=== PATIENT | female | born 1995 | race African-American/Black ===

== ENCOUNTER 2018-05-29 16:54 | Inpatient (IN) ==
[2018-05-29] MEDS ORDERED: BUTORPHANOL 1 MG/ML VIAL IV PRN (17:10)
[2018-05-29] MEDS ORDERED: MEPERIDINE 50 MG/1 ML VIAL IV PRN (17:10)
[2018-05-29] MEDS ORDERED: BUTORPHANOL 2 MG/ML VIAL IV PRN (17:10)
[2018-05-29] MEDS ORDERED: ONDANSETRON 4 MG/2 ML VIAL IV PRN (17:10)
[2018-05-29] MEDS ORDERED: AMPICILLIN INJ 2,000 MG in SODIUM CHLORIDE 0.9% 100 ML IV ONE (17:14)
[2018-05-29] MEDS: LACTATED RINGERS 1,000 ML IV SCH ×2 (17:40→20:38)
[2018-05-29 18:51] LABS: Albumin 2.4 G/DL (3.4-5.0); Bilirubin,Total 0.4 MG/DL (0.2-1.0); Calcium 8.5 MG/DL (8.5-10.1); Osmolality,Calculated 269.7 MOS/KG (273-304); Potassium 3.6 MMOL/L (3.5-5.1)
[2018-05-29 19:06] LABS: Basophils % 0.2 % (0.0-0.8); Eosinophils # 0.1 10*3/uL (0.0-0.87); Eosinophils % 0.5 % (0.00-10.9); Hematocrit 31.1 VOL% (35.7-47.0); Hemoglobin 8.9 GM/DL (12.0-16.0); Immature Granulocytes % 0.7 %; Immature Granulocytes Absolute 0.09 #; Lymphocytes # 2.2 10*3/uL (1.4-4.0); Lymphocytes % 17.9 % (21.3-54.2); Mean Corpuscular HGB Conc 28.6 GM/DL (32-36); Mean Corpuscular Hemoglobin 21 PG (27-34); Mean Corpuscular Volume 72.3 FL (87-102); Mean Platelet Volume 11.1 FL (9.6-12.0); Monocytes # 0.9 10*3/uL (0.11-0.8); Monocytes % 6.9 % (1.7-12.7); Neutrophils # 9.1 10*3/uL (1.4-7.4); Neutrophils % 73.8 % (38.7-73.9); Platelet Count 273 T/CUMM (130-400); Red Cell Distribution Width 17.8 % (9.3-17.3); White Blood Count 12.3 T/CUMM (4-12)
[2018-05-29] MEDS ORDERED: FAMOTIDINE 20 MG/2 ML VIAL IV ONE (19:49)
[2018-05-29] MEDS ORDERED: CITRIC ACID/SODIUM CITRATE 30 ML UDCUP PO ONE (19:49)
[2018-05-29] MEDS ORDERED: fentaNYL 2 MCG/ROPIV 0.2% EPID 100 ML EPIDURAL SCH (20:00)
[2018-05-29] MEDS ORDERED: LIDOCAINE 1% 50 ML VIAL ONE (20:31)
[2018-05-29] MEDS ORDERED: miSOPROStol 200 MCG TABLET ONE (20:31)
[2018-05-29] MEDS ORDERED: ePHEDrine 50 MG/ML AMP ONE (20:32)
[2018-05-29] MEDS: AMPICILLIN INJ 1,000 MG in SODIUM CHLORIDE 0.9% 100 ML IV SCH (21:44)
[2018-05-29 23:04] LABS: Apearance,Urine CLEAR (Clear); Bilirubin,Urine Negative (Negative); Blood, Urine Negative (Negative); Glucose,Urine (UA) Negative (Negative); Ketones,Urine 80 mg/dL (Negative); Mucus,Urine Occasional /LPF (Occasional); Nitrite,Urine Negative (Negative); Protein,Urine Negative; RBC,Urine 1 /HPF (0-4); Renal Epithelial Cells,Urine Occasional /HPF (<1); Squamous Epithelial Cell,Urine Occasional /HPF (0-10); Urine Color Yellow (Yellow); Urine Specific Gravity 1.013 (1.001-1.035); WBC,Urine 1 /HPF (0-6)
[2018-05-30 00:57] LABS: Apearance,Urine CLEAR (Clear); Bilirubin,Urine Negative (Negative); Blood, Urine Negative (Negative); Glucose,Urine (UA) Negative (Negative); Ketones,Urine 80 mg/dL (Negative); Mucus,Urine Occasional /LPF (Occasional); Nitrite,Urine Negative (Negative); Protein,Urine Negative; Squamous Epithelial Cell,Urine Occasional /HPF (0-10); Urine Color Yellow (Yellow); Urine Specific Gravity 1.015 (1.001-1.035); Urine Urobilinogen < 2.0 EU/DL (0.2-1.0); WBC,Urine <1 /HPF (0-6)
[2018-05-30] MEDS: AMPICILLIN INJ 1,000 MG in SODIUM CHLORIDE 0.9% 100 ML IV SCH ×2 (01:29→05:34)
[2018-05-30] MEDS: LACTATED RINGERS 1,000 ML IV SCH (02:45)
[2018-05-30] MEDS ORDERED: METHYLERGONOVINE 0.2 MG/1 ML AMP ONE (05:37)
[2018-05-30] MEDS: OXYTOCIN/LR 20 UNIT/1,000 ML BAG IV SCH ×2 (06:10→08:49)
[2018-05-30 06:35] LABS: Cord Venous Blood HCO3 22.6 MMOL/L; Cord Venous Blood PCO2 34.4 MMHG; Cord Venous Blood PO2 35.4
[2018-05-30] MEDS ORDERED: IBUPROFEN 800 MG TABLET PO ONE (07:22)
[2018-05-30] MEDS ORDERED: BENZOCAINE 20%/MENTHOL 0.5% SPRAY 56 GM CAN TOP PRN (09:32)
[2018-05-30] MEDS ORDERED: ACETAMINOPHEN 325 MG TABLET PO PRN (09:32)
[2018-05-30] MEDS ORDERED: RHO(D) IMMUNE GLOBULIN 300 MCG SYRINGE IM ONE (09:32)
[2018-05-30] MEDS ORDERED: oxyCODONE/ACETAMINOPHEN 5-325 MG TABLET PO PRN (09:32)
[2018-05-30] MEDS ORDERED: WITCH HAZEL PADS 100/JAR TOP PRN (09:32)
[2018-05-30] MEDS ORDERED: MEASLES/MUMPS/RUBELLA VACCINE 0.5 ML VIAL SUBCUT ONE (09:32)
[2018-05-30] MEDS ORDERED: LANOLIN 50% CREAM 0.3 OZ TUBE TOP PRN (09:32)
[2018-05-30] MEDS ORDERED: ACETAMINOPHEN/CODEINE 300-30 MG TABLET PO PRN (09:32)
[2018-05-30] MEDS ORDERED: HYDROCORTISONE 2.5% RECTAL CREAM 30 GM TUBE TOP PRN (09:32)
[2018-05-30] MEDS ORDERED: DIPH/TET/ACEL PERT BOOSTER VACCINE 0.5 ML VIAL IM ONE (09:32)
[2018-05-30] MEDS ORDERED: BISACODYL 10 MG SUPP RECTAL PRN (09:32)
[2018-05-30] MEDS ORDERED: ONDANSETRON 4 MG TABLET PO PRN (14:08)
[2018-05-30] MEDS: IBUPROFEN 800 MG TABLET PO PRN (17:29)
[2018-05-30] MEDS: DOCUSATE SODIUM 100 MG CAPSULE PO SCH (21:07)
[2018-05-31] MEDS: IBUPROFEN 800 MG TABLET PO PRN ×3 (00:06→17:02)
[2018-05-31] MEDS: oxyCODONE/ACETAMINOPHEN 5-325 MG TABLET PO PRN ×3 (00:06→16:59)
[2018-05-31 05:28] LABS: Basophils % 0.2 % (0.0-0.8); Eosinophils # 0.3 10*3/uL (0.0-0.87); Hematocrit 23.3 VOL% (35.7-47.0); Hemoglobin 6.5 GM/DL (12.0-16.0); Immature Granulocytes % 0.5 %; Immature Granulocytes Absolute 0.07 #; Lymphocytes # 4.2 10*3/uL (1.4-4.0); Lymphocytes % 30.7 % (21.3-54.2); Mean Corpuscular HGB Conc 27.9 GM/DL (32-36); Mean Corpuscular Hemoglobin 20 PG (27-34); Mean Platelet Volume 10.5 FL (9.6-12.0); Monocytes # 0.8 10*3/uL (0.11-0.8); Monocytes % 5.6 % (1.7-12.7); Neutrophils # 8.4 10*3/uL (1.4-7.4); Platelet Count 221 T/CUMM (130-400); Red Blood Count 3.19 MC/CUMM (3.8-5.5); Red Cell Distribution Width 17.7 % (9.3-17.3); White Blood Count 13.8 T/CUMM (4-12)
[2018-05-31 05:56] LABS: Hypochromasia 1+; Microcytosis Slight; Platelet Estimate Adequate
[2018-05-31 05:57] LABS: Ovalocytes Slight
[2018-05-31] MEDS: DOCUSATE SODIUM 100 MG CAPSULE PO SCH ×3 (07:14→22:24)
[2018-05-31] MEDS ORDERED: SODIUM CHLORIDE 0.9% 1,000 ML IV PRN (07:42)
[2018-05-31] MEDS ORDERED: INFLUENZA VIRUS VACCINE 0.5 ML SYRINGE IM ONE (08:00)
[2018-05-31] MEDS: FERROUS SULFATE 325 MG TABLET PO SCH ×3 (08:07→22:23)
[2018-05-31 17:44] LABS: Hematocrit 32.3 VOL% (35.7-47.0)
[2018-05-31 17:45] LABS: Hemoglobin 9.7 GM/DL (12.0-16.0)
[2018-06-01] MEDS: oxyCODONE/ACETAMINOPHEN 5-325 MG TABLET PO PRN ×2 (00:25→08:40)
[2018-06-01] MEDS: IBUPROFEN 800 MG TABLET PO PRN ×2 (00:26→08:40)
[2018-06-01] MEDS: DOCUSATE SODIUM 100 MG CAPSULE PO SCH (08:43)
[2018-06-01] MEDS: FERROUS SULFATE 325 MG TABLET PO SCH (08:44)
[2018-06-01 11:46] VITALS: BP 132/71
== END 2018-06-01 13:15 | disposition home or self-care (01) | DRG 560 ==
LOC: N.LDOUT 16:54 → N.LD 16:55 → N.OB 05-30 09:29
PROVIDERS: ADMIT Obstetrics & Gynecology; ATTEND Obstetrics & Gynecology